=== PATIENT | female | born 1975 | race Caucasian/White ===

== ENCOUNTER 2016-11-30 17:28 | Emergency (ER) | payer SELFPAY ==
[~2016-11-30] VITALS: Ht 157.5 cm; Wt 54.4 kg
[2016-11-30 17:41] VITALS: BP 141/89; PULSE 95; RESP 16; TEMP 97.5; O2SAT 96
--- NOTE | 2016-11-30 17:47 | NUR ---
Patient triaged and placed in waiting room. VSS and patient appears in no acute distress at this time. Accompanied WITH FRIEND, awaiting available bed, and MD notified of need for MSE.
--- NOTE | 2016-11-30 20:10 | NUR ---
PT. TO [facility]AIR, ASSUMED PT. CARE, REPORT RECEIVED FROM JOHN EDWARD
--- NOTE | 2016-11-30 20:15 | NUR ---
PT. TO ER Paloma PRESENTED FROM HOME FOR INJURY TO HER RIGHT EARLOBE, PER PT. SHE WAS WORKING OUTSIDE IN THE [employer] AREA AND A SHARP TOOL PULLED HER EAR RING OUT, STATES THAT THERE WAS BLEEDING AT THE TIME OF INJURY, NO BLEEDING OR HEMATOMA NOTED AT THIS TIME, NO C/O PAIN AT THIS TIME
--- NOTE | 2016-11-30 20:20 | NUR ---
DR. MELARA AT BEDSIDE EXAMINING THE PT.
[2016-11-30 20:32] LABS: BILIRUBIN,URINE NEGATIVE (NEGATIVE); BLOOD, URINE 3+ (NEGATIVE); CLARITY/URINE HAZY (CLEAR); COLOR,URINE YELLOW (YELLOW); GLUCOSE,URINE NEGATIVE (NEGATIVE); KETONES,URINE NEGATIVE (NEGATIVE); LEUKOCYTE ESTERASE ,URINE NEGATIVE (NEGATIVE); NITRITE, URINE NEGATIVE (NEGATIVE); PROTEIN URINE TRACE (NEGATIVE); UROBILINOGEN,URINE 0.2 (0.2-1.0)
[2016-11-30] MEDS ORDERED: LIDOCAINE 1% 10 MG/ML, 20 ML MDV IJ ONE (21:00)
[2016-11-30] MEDS ORDERED: BACITRACIN 1 GM OINT TP ONE (21:00)
[2016-11-30 21:19] LABS: RBC,URINE 20-50 /HPF (0-3)
[2016-11-30 21:20] LABS: BACTERIA,URINE FEW /HPF (None Seen)
[2016-11-30 21:21] LABS: MUCUS,URINE 1+ /LPF (None Seen)
--- NOTE | 2016-11-30 21:40 | NUR ---
pt. placed in room 6
--- NOTE | 2016-11-30 21:54 | NUR ---
suture set up at bedside, wound site cleaned with half NS and half betadine ,pt. tolerated well
[2016-11-30 23:42] VITALS: BP 133/82; PULSE 89; RESP 16; TEMP 97.7; O2SAT 99
--- NOTE | 2016-11-30 23:43 | NUR ---
Patient given written and verbal discharge instructions and verbalizes understanding. ER MD discussed with patient the results and treatment provided. Patient in stable condition. ID arm band removed. Rx of Cipro, Keflex,and motrin given. Patient educated on pain management and to follow up with PMD. Pain Scale 0/10. Opportunity for questions provided and answered.
== END 2016-11-30 23:42 | disposition home or self-care (01) ==
LOC: SED 17:28
DX: S01.311A Laceration without foreign body of right ear, initial encounter (principal); N39.0 Urinary tract infection, site not specified; W20.8XXA Other cause of strike by thrown, projected or falling object, initial encounter; Y93.89 Activity, other specified; Y92.89 Other specified places as the place of occurrence of the external cause; Y99.8 Other external cause status
CPT/HCPCS: 12011; 81000; 99283; J2001